=== PATIENT | female | born 1985 | race Caucasian/White ===

== ENCOUNTER 2023-12-07 09:18 | Inpatient (IN) | payer BC, SELFPAY ==
[2023-12-07] VITALS (135 sets, daily range): BP systolic 104–174; BP diastolic 55–98; PULSE 66–137; RESP 16; TEMP 36.3–37; O2SAT 79–100; BMI 41.0
--- OUTSIDE RECORDS SUMMARY | 2023-12-07 10:17 | XMS_ITS ---
Author Name Unknown Organization [facility] Address [address] [place] [address] Care Team Providers Care Tank Maker Wood Name Role Phone Naya Vela Primary Care Provider Medications Medication SIG (Take, Route, Frequency, Duration) Notes Start Date End Date Status Euthyrox 75 mcg (0.075 mg) 1 tab(s) oral ly once a day for 90 days 07/28/2023 Active Encounters Encounter Location Date Provider Diagnosis [facility] - Naya Vela [address] [place] [address] 07/28/2023 Naya Vela Hypothyroidism, unspecified E03.9 Assessments Encounter Date Diagnosis (ICD Code) Assessment Notes Treat ment Notes Treatment Clinical Notes 07/28/2023 Hypothyroidism, unspecified (ICD-10 - E03.9) Plan Of Treatment Medication Medication Name Sig Start Date Stop Date Notes Euthyrox 75 mcg (0.075 mg) 1 tab(s) oral ly once a day for 90 days 07/28/2023 Progress Notes * Brandon SPRINGEROB:1985 ( 38 yo F)Acc No.[id number]:07/28/2023 * Refills? Start Euthyrox tablet, 75 mcg (0.075 mg), orally, 90 Tablet, 1 tab(s), once a day, 90 days, Refills=1 Subjective: * Chief Complaints: * ??
--- OUTSIDE RECORDS SUMMARY | 2023-12-07 10:17 | XMS_ITS ---
Author Name Unknown Organization [facility] Address [address] [place] [address] Care Team Providers Care Armhole Raiser Lockstitch Name Role Phone Dane Naya Primary Care Provider [phone] Medications Medication SIG (Take, Route, Frequency, Duration) Notes Start Date End Date Status Euthyrox 75 mcg (0.075 mg) 1 tab(s) oral ly once a day for 90 days 09/19/2023 Active Vital Signs Blood pressure systolic 118 mm Hg 09/19/19 24 Blood pressure diastolic 68 mm Hg 024 Heart Rate 70 /min 09/19/2023 Respiratory Rate 12 /min 09/19/2023 Height 63 in 09/19/2023 Weight 215 lbs 09/19/2023 BMI 38.08 kg/m2 09/19/2023 Encounters Encounter Location Date Provider Diagnosis [facility] - Naya Vela [address] [place] [address] 09/19/2023 Naya Dane Hypothyroidism, unspecified E03.9 and related conditions, unspecified, third trimester O26.93 Assessments Encounter Date Diagnosis (ICD Code) Assessment Notes Treatment Notes Treatment Clinical Notes 09/19/2023 Hypothyroidism, unspecified (ICD-10 - E03.9) TSH and FT4 in ideal range for third trimester - she is doing well, baby is developing well. She will be following up with her OB every 2 weeks until delivery, due on Dec 08. Continue euthyrox 75 mcg daily- will send in 6 month supply so patient has ample levels. Discussed changes through and changes. Recommend we re
--- OUTSIDE RECORDS SUMMARY | 2023-12-07 10:18 | XMS_ITS | Clinical Summary ---
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 Klein - normal pap 2010, 2011 Uterine Neoplasm, Benign Leiomyoma 04/27/2014 BRIAN MOSS NP-BC Active Last Documented On 04/27/2014 12:58PM ; [facility] Note: U/S done - Dr. Klein Plan of Treatment No Plan of Treatment Recorded Assessments Includes: Assessments from this encounter No Assessments Recorded Medical Equipment - Implanted Devices Includes: Current Devices No Medical Equipment Recorded Medications Includes: Medications discussed during this encounter and other current Medications New / Renewed during this visit NIGEL SPENCER OYSTER TONGER-C on 04/14/2022 Cephalexin 500 MG Oral Tablet Provider: NIGEL SPENCER OYSTER TONGER-C 10 day supply: 20 tablet, 0 refills Diagnosis: Streptococcal pharyngitis One tablet twice a day X 10 days Pharmacy: [facility] - [address] [place] [address], [phone] -
--- OUTSIDE RECORDS SUMMARY | 2023-12-07 10:18 | XMS_ITS | Clinical Summary ---
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 Klein - normal pap 2010, 2011 Uterine Neoplasm, Benign Leiomyoma 04/27/2014 BRIAN MOSS [facility]-BC Active Last Documented On 04/27/2014 12:58PM ; [facility] Note: U/S done - Dr. Klein Plan of Treatment No Plan of Treatment Recorded Assessments Includes: Assessments from this encounter No Assessments Recorded Medical Equipment - Implanted Devices Includes: Current Devices No Medical Equipment Recorded Medications Includes: Medications discussed during this encounter and other current Medications Current Medications (continue as prescribed) Cephalexin 500 MG Oral Tablet 04/14/2022 Provider: NIGEL SPENCER OVERHEAD CLEANER MAINTAINER-C Diagnosis: Streptococcal ph aryngitis One tablet twice a day X 10 days Stephanie-28 0.15-30 MG-MCG Oral Tablet 10/15/2019 Prov ider: BRIAN MACDONALD
--- OUTSIDE RECORDS SUMMARY | 2023-12-07 10:18 | XMS_ITS ---
Author Name Unknown Address [address] [place] [address] Phone Organization [facility] Address [address] [place] [address] Phone Care Team Providers Care Manipulative Therapy Specialist Name Role Phone Unavailable Unavailable Unavailable Problems Includes: Active, inactive, and resolved Problems All Visits Onset Date Resolved Date Provider Condition S tatus Previous Leep 04/27/2014 BRIAN MOSS NP-BC Active Last Documented On 04/27/2014 12:59PM ; [facility] Note: 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 Klein - normal pap 2010, 2011 Uterine Neoplasm, Benign Leiomyoma 04/27/2014 BRIAN MOSS NP-BC Active Last Documented On 04/27/2014 12:58PM ; [facility] Note: U/S done - Dr. Klein Plan of Treatment Findings Encounter Date Ordered Clinical summary pro vided to patient WELL WOMAN EXAM with BRIAN MOSS NP-BC 10/15/2019 Instructions to patient
--- OUTSIDE RECORDS SUMMARY | 2023-12-07 10:18 | XMS_ITS | Clinical Summary ---
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 Klein - normal pap 2010, 2011 Uterine Neoplasm, Benign Leiomyoma 04/27/2014 BRIAN MOSS [facility]-BC Active Last Documented On 04/27/2014 12:58PM ; [facility] Note: U/S done - Dr. Klein Plan of Treatment No Plan of Treatment Recorded Assessments Includes: Assessments from this encounter No Assessments Recorded Medical Equipment - Implanted Devices Includes: Current Devices No Medical Equipment Recorded Medications Includes: Medications discussed during this encounter and other current Medications Current Medications (continue as prescribed) Cephalexin 500 MG Oral Tablet 04/14/2022 Provider: NIGEL SPENECR VISUAL DISPLAY MANAGER-C Diagnosis: Streptococcal ph aryngitis One tablet twice a day X 10 days Stephanie-28 0.15-30 MG-MCG Oral Tablet 10/15/2019 Prov ider: BRIAN
--- OUTSIDE RECORDS SUMMARY | 2023-12-07 10:18 | XMS_ITS | Patient Health Record ---
Author Name Unknown Organization [facility] Address [address] [address] Care Team Providers Care Digital Circuit Designer Name Role Phone Naya Vela Primary Care Provider [phone] Allergies Allergen (clinical drug ingredient) Drug/Non Drug Allergy documented on EMR Reaction Allergy Type Onset Date Status aspirin aspirin Unknown Drug Allergy Active Results Component Value Reference Range Notes COMPREHENSIVE METABOLIC PANE L Reviewed date:07/01/2023 09:01:03 AM Interpretation: Performing Lab:[facility], [facility], [address] [place], [address] FabiolaKatelynn Lilly MD Notes/Report: FASTING:YES FASTING: YES GLUCOSE 82 65-99 mg/dL Fasting reference interval UREA NITROGEN (BUN) 10 7-25 mg/dL CREATININE 0.53 0.50-0.97 mg/dL EGFR 123 > OR = 60 mL/min/1.73m2 BUN/CREATININE RATIO SEE NOTE: 6-22 (calc) Not Reported: BUN and Creatinine are within reference range. SODIUM 138 135-146 mmol/L POTASSIUM 3.8 3.5-5.3 mmol/L CHLORIDE 108 98-110 mmol/L CARBON DIOXIDE 22 20-32 mmol/L CALCIUM 8.6 8.6-10.2 mg/dL PROTEIN, TOTAL 5.7 6.1-8.1 g/dL ALBUMIN 3.5 3.6-5.1 g/dL GLOBULIN 2.2 1.9-3.7 g/dL (calc) ALBUMIN/GLOBULIN RATIO 1.6 1.0-2.5 (calc) BILIRUBIN, TOTAL 0.4 0.2-1.2 mg/dL ALKALINE PHOSPHATASE 40 31-125 U/L AST 14 10-30 U/L ALT 9 6-29 U/L
--- OUTSIDE RECORDS SUMMARY | 2023-12-07 10:18 | XMS_ITS | Clinical Summary ---
Author Name Unknown Address [address] [place] [address] Phone Organization [facility] Address [address] [place] [address] Phone Care Team Providers Care Netbackup Administrator Name Role Phone Unavailable Unavailable Unavailable Reason for Visit and Chief Complaint gynecologic annual exam - The Chief Complaint is: Annual Problems Includes: Problems addressed during this encounter and other active Problems All Visits Onset Date Resolved Date Provider Condition S tatus Previous Leep 04/27/2014 BRIAN MOSS [facility] Active Last Documented On 04/27/2014 12:59PM ; [facility] Note: 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 Klein - normal pap 2010, 2011 Uterine Neoplasm, Benign Leiomyoma 04/27/2014 BRIAN MOSS NP-BC Active Last Documented On 04/27/2014 12:58PM ; [facility] Note: U/S done - Dr. Klein Plan of Treatment - Clinical summary provided to patient - Last Documented On 10/15/2019 8:34AM ; [facility] Instructions to patient Instructions for patient : B reast Self Exam discussed Last Documented On 0 8:18AM ; [facility] Lose weight Last Documented On 0 8:18AM ; [facility] Education and Decision Aids were provided during visit for: Patient Education: Daily solange cium and vitamin D Last Documented On 0 8:
--- OUTSIDE RECORDS SUMMARY | 2023-12-07 10:19 | XMS_ITS | Clinical Summary ---
Author Name Unknown Address [address] [place] [address] Phone Organization [facility] Address [address] [place] [address] Phone Care Team Providers Care Button Riveter Name Role Phone Unavailable Unavailable Unavailable Reason for Visit and Chief Complaint gynecologic annual exam - The Chief Complaint is: Annual Problems Includes: Problems addressed during this encounter and other active Problems All Visits Onset Date Resolved Date Provider Condition S tatus Previous Leep 04/27/2014 BRIAN MOSS [facility] Active Last Documented On 04/27/2014 12:59PM ; [facility] Note: 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 Klein - normal pap 2010, 2011 Uterine Neoplasm, Benign Leiomyoma 04/27/2014 BRIAN MOSS NP-BC Active Last Documented On 04/27/2014 12:58PM ; [facility] Note: U/S done - Dr. Klein Plan of Treatment - Clinical summary provided to patient - Last Documented On 06/05/2018 10:30AM ; [facility] Instructions to patient Instructions for patient : B reast Self Exam discussed Last Documented On 9 10:17AM ; [facility] Lose weight Last Documented On 9 10:17AM ; [facility] Safe sex counseling Last Documented On 9 10:17AM ; [facility] Education and Decision Aids were provided during visit for:
[2023-12-07 11:17] LABS: Basophils Percent Auto 0.4 % (0.2-1.2); Eosinophils Percent Auto 0.2 % (0-4.4); Hematocrit 37.7 % (37.0-47.0); Immature Granulocyte Absolute 0.11 K/mm3 (0.00-0.031); Lymphocytes Absolute Auto 2.04 K/mm3 (0.9-3.2); Lymphocytes Percent Auto 18.9 % (18.3-44.2); Mean Corpuscular HGB Conc 31.8 g/dl (32-36); Mean Corpuscular Hemoglobin 27.1 pg (26-34); Mean Corpuscular Volume 85.1 fl (80-100); Mean Platelet Volume 12.1 fl (7.4-10.4); Monocytes Absolute Auto 0.5 K/mm3 (0.1-0.6); Monocytes Percent Auto 4.5 % (2.6-8.5); Neutrophils Absolute Auto 8.1 K/mm3 (1.3-6.7); Platelet Count Result 266 k/mm3 (150-375); Red Blood Count 4.43 M/mm3 (4.2-5.4); Red Cell Distribution Width 14.9 % (11.5-14.5); White Blood Count 10.8 K/mm3 (4.5-10.0)
--- NOTE | 2023-12-07 11:26 | LDADM ---
This patient, Naya Mays, was admitted to Labor/Delivery/Recovery 106 on 12/07/23 at 09:18. Plans for labor, pain management and were discussed with patient. Patient/family oriented to hospital policies and general routines including ID bracelet, bed and alarms, visiting hours, pain management, procedures, bathroom and other care routines, personal items, smoking policy, room service/diet and guest tray routines, security routines, and visiting hours. Patient/Family are encouraged to report perceived risks to care and to ask questions if they do not understand what they are told or what they should do. See OBIX for further documentation.
[2023-12-07 11:58] LABS: Rapid Plasma Reagin Non-Reactive (NonReactive)
[2023-12-07 12:08] LABS: HIV 1/2 Ab P24 Ag Result Negative (Negative)
[2023-12-07] MEDS: OXYTOCIN 30 UNITS/NS 500 ML 30 UNITS/500 ML BAG IV CONT (15:02)
[2023-12-07] MEDS: LACTATED RINGERS 1,000 ML 125 ML IV CONT ×2 (15:02→17:04)
--- NOTE | 2023-12-07 15:32 | PM.OBPNLAB ---
Pain Control Date/time seen: 12/07/23 15:32 Pain control: tolerating well Comments: Fore bag palpable and further rupture undertaken Pelvic Exam Dilation (cm): 4 Effacement (%): 70 station: -2 Amniotic membrane status: Leaking
--- NOTE | 2023-12-07 17:03 | WPDANESEPP ---
Anes - Eval Pre Procedure Procedure: Labor epidural Date/Time: 12/07/23 17:03 Surgeon: Andrew MARCUS Preop Diagnosis: Abdominal pain with contractions Pre Op Diagnosis: Leaking Fluid Patient Data Age: 38 Gender: F Height: 1.6 m Weight: 105 kg Last Vital Signs Temp 97.5 F L 12/07/23 12:00 Pulse 67 12/07/23 17:00 BP 129/72 12/07/23 17:00 Pulse Ox 100 12/07/23 17:02 O2 Del Method Room Air 12/07/23 11:43 Allergies Allergy/AdvReac Type Severity Reaction Status Date / Time aspirin Allergy Anaphylaxis Verified 12/07/23 11:54 Home Medications Medication Instructions Recorded Confirmed Type levothyroxine 50 mcg tablet 75 mcg PO DAILY 06/04/22 11/14/23 History vits no.126-ferrous fum 1 tablet PO DAILY 11/14/23 11/14/23 History 28 mg iron-folic acid 800 mcg tablet (Classic ) Laboratory Tests 12/07/23 11:09 WBC 10.8 H K/mm3 (4.5-10.0) RBC 4.43 M/mm3 (4.2-5.4) Hgb 12.0 g/dL (12.0-15.0) Hct 37.7 % (37.0-47.0) MCV 85.1 fl (80-100) MCH 27.1 pg (26-34) MCHC 31.8 L g/dl (32-36) RDW 14.9 H % (11.5-14.5) Plt Count 266 k/mm3 (150-375) MPV 12.1 H fl (7.4-10.4) Immature Gran % (Auto) 1.0 H % (0-0.5) Neut % (Auto) 75.0 H % (45.5-73.1) Lymph % (Auto) 18.9 % (18.3-44.2) [place] % (Auto) 4.5 % (2.6-8.5) Eos % (Auto) 0.2 % (0-4.4) Baso % (Auto) 0.4 % (0.2-1.2) Lymph # (Auto) 2.04 K/mm3 (0.9-3.2) [place] # (Auto) 0.5 K/mm3 (0.1-0.6) Eos # (Auto) 0.0 K/mm3 (0-0.3) Baso # (Auto) 0.0 K/mm3 (0.0-0.1) Abs Immat Gran (auto) 0.11 H K/mm3 (0.00-0.031) Absolute Neuts (auto) 8.1 H K/mm3 (1.3-6.7) Absolute Nucleated RBC 0.000 K/mm3 (0.0-0.012) Nucleated RBC % 0.0 % (0.0-0.2) RPR Non-reactive (NonReactive) HIV 1&2 Ab/P24 Ag 4thGn Negative (Negative) Blood Type O Positive Antibody Screen Negative : gestational age HCG: positive Patient hx anesthesia problems: none Family hx anesthesia problems: none Results Review: All pre-operative results and documents have been reviewed as part of the pre-operative evaluation. [facility] Past Medical History Medical History GERD (gastroesophageal reflux disease) Nilesh thyroiditis Morbid obesity PVC (premature ventricular contraction) Term Family History Family History Sibling Diabetes mellitus Father Hypertension Mother Heart murmur Social History Social History Smoking status: Never smoker Tobacco type: cigarettes Second hand tobacco smoke exposure: No Additional smoking assessment comments: A TEEN Alcohol intake: current Drinks per week: 2 Substance use: never Substance use type: does not use Do You Feel Safe in your Home?: Yes Lack of Transportation: No Lack of Food: Never True Current Housing: I Have Housing Concerned About Future Housing: No Difficulty Paying Gas/Electric Bills: No Difficulty Paying for Meds: No Currently Unemployed: No Education: Associate Degree Difficulty w/ Childcare or Family Care: No Living arrangements: with family Spiritual care concerns: No Exam Day of Procedure 12/07/23 17:03 Patient weight: morbidly obese Heart: regular rate and rhythm Lungs: clear to auscultation Airway: Mallampati scale class II Neurological: alert and oriented
[2023-12-07] MEDS: OXYTOCIN 30 UNITS/NS 500 ML 30 UNITS/500 ML BAG 999 UNITS IV CONT (18:30)
--- NOTE | 2023-12-07 18:37 | PM.OBPRVD ---
OB - Vaginal Delivery Note Procedure Delivery date: 12/07/23 Induction method: None Delivery augmentation: Pitocin Delivery monitor: External FHT and External Uterine Episiotomy description: None Laceration Description: Perineal - 1st Degree Delivery repair: vicryl Specimen: No Quantitative Blood Loss (ml): 61 Anesthesia type: Epidural Disposition: Floor Narrative: patient was admitted in active labor with spontaneous rupture membranes Pitocin augmentation was begun she progressed with an uncomplicated 1st stage of labor procedure complete pushed delivered head spontaneously in the MYRNA position a minor shoulder dystocia was noted no was relieved with Chance position. Anterior posterior shoulder delivered spontaneously. Cord clamped and was cut and passed off the table given Apgars of 8 and 9 at 1 and 5minutes respectively. Spontaneous delivery of the placenta occurred. First-degree laceration was closed with [id number]-[id number] Vicryl blood loss was 61cc Baby Date of : 12/07/23 Time of : 18:22 Gestational Age by Date: 39 gender: Female Weight (pounds): 7 Weight (ounces): 12 presentation: vertex position: Left Occiput Anterior Placenta delivery description: Spontaneous Cord Vessel Description: 3 Vessels, Nuchal Cord, Loose and Reduced score one minute: 8 score five minutes: 9
[2023-12-07] MEDS: OXYTOCIN 30 UNITS/NS 500 ML 30 UNITS/500 ML BAG 125 UNITS IV CONT (19:00)
[2023-12-07] MEDS: WITCH HAZEL 40 PADS 1 PAD TOPICAL (21:48)
[2023-12-07] MEDS: BENZOCAINE 20% AER SPR (*SP) 56 GM CAN 1 SPRAY TOPICAL (21:48)
--- NOTE | 2023-12-07 22:21 | OBPPTRN ---
12/07/2023 at 2052 Patient transferred to post room #285 via . Support person present. Oriented to unit, room, information board, rooming in, admission packet and security measures. Patient and her significant other verbalizes understanding.
[2023-12-08 00:01] VITALS: BP 125/67; PULSE 66; RESP 16; TEMP 36.6; O2SAT 97
[2023-12-08] MEDS: LANOLIN (LANSINOH) 7.5 GM CREAM 1 APPLIC TOPICAL (04:01)
[2023-12-08] MEDS: ACETAMINOPHEN 325 MG TABLET 650 MG PO (04:57)
[2023-12-08 04:59] LABS: Hematocrit 33.7 % (37.0-47.0); Hemoglobin 10.4 g/dL (12.0-15.0)
[2023-12-08] MEDS: IBUPROFEN 600 MG TABLET PO (07:28)
[2023-12-08] MEDS: MULTIVIT/MIN/PREN/FOL AC/IRON TABLET 1 TAB PO (07:28)
[2023-12-08 07:35] VITALS: BP 119/74; PULSE 70; RESP 16; TEMP 36.6; O2SAT 98
--- NOTE | 2023-12-08 07:50 | PC.NURSE ---
Consulted with patient to assess needs related to . Discussed with mother her successes, concerns and any questions she has. We reviewed working with the , protecting her nipples with an optimal deep latch. Encouraged understanding the benefits of responding to feeding cues, frequencies of feeding 8-12 times in 24 hours (approximately 2-3 hours), duration of feedings, intake/output feeding sheet. Mother already had latched to the [left] breast in [cradle] position. The was [able] to maintain latch. Baby's bottom lip appeared to be rolled under and mom said her nipples are very sore. Nipple care reviewed with optimal latch and checking baby's lips to ensure they are flanged out. Mother voiced understanding of the education shared, to call for assistance if the infant does not latch or if there is discomfort with . Reported to the Primary RN.
[2023-12-08 12:08] VITALS: BP 124/81; PULSE 95; RESP 16; TEMP 36.6; O2SAT 98
--- NOTE | 2023-12-08 13:00 | PC.NURSE ---
Patient called out with questions. Mom would like to use the pacifier to calm baby, but wasn't sure if that was ok. We reviewed feeding frequently when baby gives feeding cues and not using the pacifier in place of feedings. We also discussed milk supply and volume, pumping, and supplementing. Mother does not want to supplement at this time but she knows it is an option if she desires. Encouraged 20 minutes per breast and then trying to settle baby with swaddling. If needed, she can put baby back to breast. We discussed supply and demand and when to pump for comfort if she becomes engorged. Mom says her nipples hurt a lot and we discussed switching positions and maintaining a deep latch throughout the feeding. She has lanolin and hydrogel pads to use for comfort. Advised using the hydrogels per package instruction. We can also try tea bags as a comfort measure if she desires. Mom says she wants to stick out the pain and continue exclusively at this time. If she has further needs or questions, she has the number to call. Mom verbalized understanding. Reported to primary RN.
--- NOTE | 2023-12-08 13:23 | PM.OBPNVD ---
OB - PN: Subj Subjective Date/time seen: 12/08/23 13:23 Narrative: Pain OK. OB - PN: Obj Data Labs 12/08/23 04:54 Labs: Laboratory Results - last 24 hr 12/08/23 04:54 Hgb 10.4 L Hct 33.7 L OB - PN A/P Plan day: 1 Comments: A: PPD#1, doing well. P: Routine care. Exam Psych: Other: AVSS ABD soft, nontender, fundus firm EXT nontender
--- NOTE | 2023-12-08 15:26 | WPDANLDPN2 ---
Anes-Prog Note L&D Date/Time: 12/08/23 15:26 Comfortable throughout: labor and delivery Neuraxial method: epidural Epidural/Spinal procedure site: clean & non-tender Neuro status: Neuro function grossly intact. Cardiovascular status: normal Respiratory status: normal Airway patency: baseline Mental status: baseline Post-Op hydration status: normal Vital Signs: Last Vital Signs Temp 36.6 C 12/08/23 12:08 Pulse 95 12/08/23 12:08 Resp 16 12/08/23 12:08 BP 124/81 12/08/23 12:08 Pulse Ox 98 12/08/23 12:08 O2 Del Method Room Air 12/07/23 11:43 Pain score (VAS): 3/10 I/O: Intake & Output 12/07/23 12/08/23 12/08/23 23:59 07:59 15:59 Intake Total 1000 480 Balance 1000 480 Post-procedural complaints: none Patient feedback: Patient satisfied with anesthetic care.
[2023-12-08 16:00] VITALS: BP 101/62; PULSE 89; RESP 16; TEMP 36.4; O2SAT 98
[2023-12-08 19:00] VITALS: BP 128/80; PULSE 84; RESP 16; TEMP 36.9; O2SAT 98
[2023-12-09] MEDS: LEVOTHYROXINE SODIUM 75 MCG TABLET PO (06:43)
[2023-12-09 07:30] VITALS: BP 119/83; PULSE 72; RESP 16; TEMP 36.5; O2SAT 100
[2023-12-09] MEDS: DOCUSATE SODIUM 100 MG CAPSULE PO (07:38)
[2023-12-09] MEDS: MULTIVIT/MIN/PREN/FOL AC/IRON TABLET 1 TAB PO (07:38)
--- NOTE | 2023-12-09 08:42 | PM.OBPNVD ---
OB - PN: Subj Subjective Date/time seen: 12/09/23 08:42 Narrative: Pain OK. Would like to go home. OB - PN: Obj Data Labs 12/08/23 04:54 OB - PN A/P Plan day: 2 Comments: A: PPD#2, doing well. P: Home to f/u 6 weeks. Exam Psych: Other: AVSS ABD soft, nontender, fundus firm EXT nontender
--- NOTE | 2023-12-09 08:43 | PM.OBDSVD ---
DS: Admitting Diagnosis Discharge Date 12/09/23 Admitting Diagnosis IUP at term Labor DS: Discharge Diagnosis Discharge Diagnosis (1) (normal spontaneous vaginal delivery): Code(s): O80 - Encounter for full-term uncomplicated delivery Status: Acute OB - DS: Summary OB Procedures : None OB Procedures Intrapartum: Spontaneous Vag Delivery OB Procedures: : None Peripartum Data Laceration Description: Perineal - 1st Degree Episiotomy description: None Time Spent with Patient Time attestation: Total time spent providing and/or coordinating discharge services: Discharge Plan Discharge Attending physician on discharge: Nick Villegas Discharging Clinician: Nick Villegas Patient Disposition: Home, Self-Care Activity: pelvic rest Diet: regular Discharge Instructions: Call or return if temperature above 100.4? F, increased abdominal pain, increased vaginal bleeding or any new problems. Stand Alone Forms: General Discharge Information Follow-up/Referrals: Nick Villegas MD [Physician] - 6 Weeks Discharge Medications: New ibuprofen 600 mg tablet 600 mg PO Q6H PRN (Reason: cramps) Qty: 30 0RF Continued levothyroxine 50 mcg tablet 75 mcg PO DAILY Classic 28 mg iron- 800 mcg Tablet 1 tablet PO DAILY Date of admission: 12/07/23 09:18 Primary Care Provider: PHYSICIAN,CORRECTION OFFICER REFORMATORY Admitting Provider: Clint Roper Attending physician on admission: Clint Roper Condition: Stable
--- NOTE | 2023-12-09 08:45 | PC.NURSE ---
Patient requested a nipple shield for pain relief. Encouraged understanding that the shield can reduce stimulation and that pumping is highly encouraged, as well as correct nipple shield placement and latch. Mother has the Using a Nipple Shield handout for reference, but did not want to try to put baby to breast at this time. She wants to try the shield at home later. Encouraged understanding of the risks of using the shield and how to tell if baby is latched correctly, without the shield moving in and out of her mouth as she sucks. Mom verbalized understanding and has the Services phone number to call if she needs further assistance after discharge. Reported to primary RN.
--- NOTE | 2023-12-09 08:45 | PC.NURSE ---
0845- Introductions were made, then consulted with patient to assess needs related to . Mother led the conversation with her?plans to feed?her infant and the?experience so far. Mom said baby was very fussy through the night and seemed constantly hungry, so they started supplementing. We discussed in detail how to maintain her milk supply with frequent pumping if she isn't putting baby to breast frequently. We also discussed deep latch, aiming for the rear part of baby's mouth, and maintaining the latch throughout the feeding. Encouraged understanding of responsive feeding, feeding on demand (aiming for 8-12 times in 24 hours, about every 2-3 hours), milk production, building/maintaining a milk supply, duration of feeding, signs of adequate intake/output and how to record on the feeding sheet. Mother voiced understanding of deep latch, milk production, and how to maintain her milk supply while supplementing, to call if infant does not latch, or if there is discomfort with . Met with patient again at 1030 to review information shared and see if parents had further questions. Resources used for education were facilitated with the [visual educational handouts (Latch 1-2-3, Is Baby Getting Enough, and Common Issues) mom and baby guide], Inpatient/outpatient resources provided, feeding sheet, name written on the communication board, and the mom/baby guide. Parents voiced understanding of information, demonstrated learning and will call if there is a request for assistance. Reported to the Primary RN.
[2023-12-10 10:43] VITALS: BP 108/66; PULSE 86; RESP 18; TEMP 36.8; O2SAT 100
== END 2023-12-09 11:36 | disposition home or self-care (01) | DRG 807 ==
LOC: ANHLDR 10:23 → ANHOB2 12-09 08:43 → ANHLDR 12-10 09:41 → ANHOB2 12-10 09:41
PROVIDERS: Admitting Provider Obstetrics & Gynecology; Visit Provider Obstetrics & Gynecology
DX: O66.0 Obstructed labor due to shoulder dystocia (principal); Z37.0 Single live birth; O70.0 First degree perineal laceration during delivery; O69.81X0 Labor and delivery complicated by cord around neck, without compression, not applicable or unspecified; Z3A.39 39 weeks gestation of pregnancy
CPT/HCPCS: 36415; 85014; 85018; 85025; 86592; 86703; 86850; 86900; 86901; A9270; G0432; J2590; J2795; J7120

== ENCOUNTER 2023-12-17 20:10 | Outpatient (CLI) | payer BC, SELFPAY ==
[2023-12-17] VITALS (9 sets, daily range): BP systolic 126–135; BP diastolic 77–79; PULSE 52–64; O2SAT 95–98
[2023-12-17 20:39] LABS: Basophils Absolute Auto 0.1 K/mm3 (0.0-0.1); Basophils Percent Auto 0.8 % (0.2-1.2); Eosinophils Absolute Auto 0.1 K/mm3 (0-0.3); Hematocrit 42.2 % (37.0-47.0); Hemoglobin 13.1 g/dL (12.0-15.0); Immature Granulocyte Absolute 0.05 K/mm3 (0.00-0.031); Immature Granulocyte Percent A 0.6 % (0-0.5); Lymphocytes Absolute Auto 2.66 K/mm3 (0.9-3.2); Lymphocytes Percent Auto 33.8 % (18.3-44.2); Mean Corpuscular Hemoglobin 26.9 pg (26-34); Mean Corpuscular Volume 86.7 fl (80-100); Mean Platelet Volume 10.3 fl (7.4-10.4); Monocytes Absolute Auto 0.7 K/mm3 (0.1-0.6); Monocytes Percent Auto 8.2 % (2.6-8.5); Neutrophils Absolute Auto 4.4 K/mm3 (1.3-6.7); Neutrophils Percent Auto 55.6 % (45.5-73.1); Platelet Count Result 401 k/mm3 (150-375); Red Blood Count 4.87 M/mm3 (4.2-5.4); Red Cell Distribution Width 15.2 % (11.5-14.5); White Blood Count 7.9 K/mm3 (4.5-10.0)
[2023-12-17 20:45] LABS: Add Urine Microscopic? YES; Appearance Urine Clear (Clear); Bacteria Urine None Seen /hpf; Bilirubin Urine Negative (Negative); Blood Urine Negative (Negative); Color Urine Yellow (Yellow); Glucose Urine UA Negative (Negative); Ketones Urine Negative (Negative); Leukocyte Esterase Ur Trace LEU/UL (Negative); Nitrate Urine Negative (Negative); Non Pathogenic Casts 0-2; Protein Urine Negative (Negative); RBC Urine 0-2 /hpf (0-2); Specific Grav Ur 1.006 (1.001-1.035); Squamous Epithelial Cell Urine None Seen /hpf (Few); Urobilinogen Urine 0.2 mg/dL (<2.0); WBC Urine 0-5 /hpf (0-3); pH Urine 5.5 (5.0-9.0)
[2023-12-17 20:49] LABS: Alanine Aminotransferase 48 U/L (6-35); Albumin Level 3.9 g/dL (3.5-5.1); Alkaline Phosphatase 136 U/L (38-126); Anion Gap 7 mmol/L (4-12); Aspartate Amino Transferase 42 U/L (14-36); Bilirubin,Total 0.4 mg/dL (0.2-1.3); Blood Urea Nitrogen 14 mg/dL (7-17); Calcium 9.2 mg/dL (8.4-10.2); Carbon Dioxide 26 mmol/L (22-30); Chloride 106 mmol/L (98-107); Estimated Glomerular Filt Rate > 60; Glucose 93 mg/dL (65-110); Potassium 4.1 mmol/L (3.4-5.0); Sodium 139 mmol/L (137-145); Uric Acid 5.2 mg/dL (2.5-7.5)
--- NOTE | 2023-12-17 21:06 | PC.NURSE ---
Addendum entered by Lauren Vela RN 12/17/23 21:18: 1+ pitting edema noted in ankles bilaterally. Original Note: Pt presents to L&D with complaints of feeling off as well as increased blood pressure at home and [employer]. Pt declines visual disturbances, epigastric pain, headache. Pt denies taking medication.
--- NOTE | 2023-12-17 21:32 | PC.NURSE ---
2124- Dr Andrew latham 2126- MD responded to page RN reported pts arrival to L&D with complaints of feeling off and increased blood pressures at home and [employer]. RN reported pts denial of visual disturbances, epigastric pain, 1+ edema bilaterally in ankles. MD made aware of results of UA,CBC, and CMP and latest blood pressures. Orders received for pt to call office in AM and make follow up appointment.
== END 2023-12-17 21:35 ==
LOC: ANHOBOP 20:16 → ANHOBPP 20:18
PROVIDERS: Obstetrics & Gynecology; Visit Provider Obstetrics & Gynecology
DX: O13.9 Gestational [pregnancy-induced] hypertension without significant proteinuria, unspecified trimester (principal); Z3A.00 Weeks of gestation of pregnancy not specified
CPT/HCPCS: 36415; 80053; 81001; 84550; 85025